=== PATIENT | male | born 1980 | race Caucasian/White ===

== ENCOUNTER 2022-09-04 22:11 | Emergency (ER) | payer BC, OTHER, SELFPAY ==
[2022-09-04 22:13] VITALS: BP 157/96; PULSE 71; RESP 16; TEMP 36.7; O2SAT 98; BMI 51.2
--- NOTE | 2022-09-04 22:20 | CT_ITS ---
PROCEDURE INFORMATION: Exam: CT Abdomen And Pelvis Without Contrast Exam date and time: 09/04/2022 11:18 PM Age: 41 years old Clinical indication: Abdominal pain; Localized; Left lower quadrant (llq); Prior surgery; Surgery type: Umbilical hernia repair; Additional info: Kidney stone protocol TECHNIQUE: Imaging protocol: Computed tomography of the abdomen and pelvis without contrast. Radiation optimization: All CT scans at this facility use at least one of these dose optimization techniques: automated exposure control; mA and/or kV adjustment per patient size (includes targeted exams where dose is matched to clinical indication); or iterative reconstruction. REPORTING DATA: Count of CT and Cardiac NM exams in prior 12 months: This patient has received 0 known CTs and 0 known cardiac nuclear medicine studies in the 12 months prior to the current study. COMPARISON: No relevant prior studies available. FINDINGS: Limitations: Lack of intravenous contrast. Lungs: Minimal atelectasis/scarring. Liver: Unremarkable. Gallbladder and bile ducts: No calcified stones. No ductal dilation. Pancreas: Unremarkable. No ductal dilation. Spleen: No splenomegaly. Adrenal glands: No mass. Kidneys and ureters: Mild stranding about kidneys. No renal calculi. No significant hydronephrosis. Stomach and bowel: No definite mural thickening. No obstruction. Appendix: Normal caliber. No inflammation. Intraperitoneal space: No significant fluid collection. No definite free air. Vasculature: Unremarkable. No abdominal aortic aneurysm. Lymph nodes: No pathologically enlarged lymph nodes. Urinary bladder: Unremarkable. Reproductive: Unremarkable as visualized. Bones/joints: No acute fracture. Soft tissues: Small to moderate umbilical hernia containing fat. IMPRESSION: 1. No definite CT evidence of urolithiasis. 2. Perinephric stranding, nonspecific. Correlate with urinalysis to exclude infection.
[2022-09-04 22:35] LABS: Microscopic, Urine URINE MICROSCOPIC (MICROSCOPIC)
--- NOTE | 2022-09-04 22:37 | [facility].EDGENADL ---
Discharge Plan Disposition Patient Disposition: Home, Self-Care Prescriptions Prescriptions: New Lortab Elixir 10-300 mg/15 mL solution 15 ml PO BID PRN (Reason: pain) Qty: 1 0RF cefdinir 300 mg capsule 300 mg PO BID 7 Days Qty: 14 0RF oxycodone 5 mg capsule 5 mg PO Q8H PRN (Reason: pain) Qty: 6 0RF No Action sumatriptan succinate [Imitrex] 100 mg Tablet 100 mg PO Q2H PRN (Reason: migraines) Rx Instructions: do not exceed 2 doses per 24 hrs metoprolol succinate 100 mg Tablet Extended Release 24 Hr 100 mg PO DAILY sertraline [Zoloft] 100 mg Tablet 100 mg PO DAILY omeprazole [Prilosec] 40 mg Capsule,Delayed Release(Dr/Ec) 40 mg PO DAILY naproxen 500 mg Tablet 500 mg PO BID Referrals Follow up/Referrals: Armando Baldwin [Primary Care Provider] - See instructions Activity Restrictions/Add. Instructions Additional Instructions/Restrictions: Return for worsening pain vomiting or any other concerns within the next 8 hours otherwise follow-up with Dr. Ge as needed [phone] Clinical Impressions Clinical Impression: Acute UTI Discharge ED Provider: Kwaku Nicholas General Adult HPI General Chief complaint: PAIN Stated complaint: LT side abd pain Time Seen by Provider: 09/04/22 22:20 Mode of Arrival: Ambulatory Limitations: No Limitations Description of Symptoms (Recalled from ER Triage Doc. by RN): pt c/o left flank pain that raidates down into his groin area and sometimes into the hip area. Pt advises the pain started Friday evening and has gotten worse. Pt denies pain or burning with urination but advises he has had some frequency. Advises he has had a hx of kidney stones History of Present Illness HPI narrative: 41-year-old male with history of kidney stones and stents presents with left flank pain and left-sided abdominal pain for the last day. He denies nausea vomiting fevers. Denies dysuria. Does have frequency. No hematuria. No diarrhea. He says that this feels like his prior kidney stones Related Data Home Medications Medication Instructions Recorded Confirmed metoprolol succinate 100 mg 100 mg PO DAILY Hypertension 09/04/22 09/04/22 tablet,extended release 24 hr naproxen 500 mg tablet 500 mg PO BID Pain 09/04/22 09/04/22 omeprazole 40 mg capsule,delayed 40 mg PO DAILY GERD 09/04/22 09/04/22 release sertraline 100 mg tablet (Zoloft) 100 mg PO DAILY Depression 09/04/22 09/04/22 sumatriptan succinate 100 mg 100 mg PO Q2H PRN migraines 09/04/22 09/04/22 tablet (Imitrex) Previous Rx's Medication Instructions Recorded hydrocodone 10 mg-acetaminophen 15 ml PO BID PRN pain #1 mL 09/04/22 300 mg/15 mL oral solution (Lortab Elixir) cefdinir 300 mg capsule 300 mg PO BID 7 days #14 caps 09/05/22 oxycodone 5 mg capsule 5 mg PO Q8H PRN pain #6 caps 09/05/22 Allergies Allergy/AdvReac Type Severity Reaction Status Date / Time escitalopram [From Lexapro] Allergy Verified 09/04/22 22:37 Iodinated Contrast Media Allergy Verified 09/04/22 22:37 lisinopril Allergy Verified 09/04/22 22:37 Penicillins Allergy Verified 09/04/22 22:37 [facility] Disclaimer: The information contained in this section may have been updated after the patient was seen, as this information can be updated by other users. Social History Smoking Status: Never smoker alcohol intake: never current occupational status: employed Travel in the last 8 weeks: Inside the [place] ROS Obtained: Yes All systems reviewed & no additional complaints except as documented Constitutional Constitutional: Denies body ache, Denies fatigue, Denies headache(s) and Denies weakness Eyes Eyes: Denies eye pain ENT Ears, Nose, Mouth, and Throat: Denies dysphagia, Denies headache(s), Denies lip swelling and Denies vertigo Cardiovascular Cardiovascular: Denies dyspnea Respiratory Respiratory: Denies shortness of breath and Denies dyspnea Gastrointestinal Harmony
[2022-09-04 22:45] LABS: Appearance,Urine CLEAR (Clear); Bilirubin,Urine Negative (Negative); Blood, Urine Negative (Negative); Color,Urine YELLOW (Yellow); Glucose,Urine (UA) Negative (Negative); Ketones,Urine Negative (Negative); Leukocyte Esterase,Urine Negative (Negative); Nitrate,Urine Negative (Negative); PH,Urine 6.5 (5.0-8.5); Protein,Urine Negative (Negative); Urobilinogen,Urine 0.2 EU/dl (0.2)
[2022-09-04 23:01] LABS: Basophils # 0.1 K/mm3 (0-0.2); Basophils % 1.6 % (0.1-2.0); Eosinophils # 0.2 K/mm3 (0.0-0.4); Eosinophils % 3.7 % (0.1-12.0); Hematocrit 44.2 % (42.0-52.0); Hemoglobin 14.7 g/dL (14.1-18.0); Lymphocytes # 1.9 K/mm3 (0.7-4.5); Lymphocytes % 32.7 % (10-50); Mean Corpuscular HGB Conc 33.4 g/dL (31.8-35.4); Mean Corpuscular Hemoglobin 28.5 pg (27.0-31.2); Mean Corpuscular Volume 85.6 fl (80-94); Mean Platelet Volume 7.8 fl (7.4-10.4); Monocytes # 0.3 K/mm3 (0.1-1.0); Monocytes % 4.5 % (1.7-9.3); Neutrophils # 3.4 K/mm3 (1.8-7.8); Neutrophils % 57.5 % (37.0-80.0); Platelet Count 249 K/mm3 (142-424); Red Blood Count 5.16 M/mm3 (4.60-6.20); Red Cell Distribution Width 13.9 % (11.5-17.5); White Blood Count 5.8 K/mm3 (4.8-10.8)
[2022-09-04 23:03] LABS: Bacteria,Urine Trace /lpf; Squamous Epithelial Cell,Urine Occasional #/hpf (0-5); WBC,Urine Occasional #/hpf (0-3)
[2022-09-04 23:08] LABS: Chloride 109 mmol/L (98-107); Potassium 3.7 mmoL/L (3.5-5.1); Sodium 140 mmol/L (136-145)
[2022-09-04 23:10] LABS: Alanine Aminotransferase 22 U/L (12-78); Aspartate Amino Transferase 29 U/L (17-59); Blood Urea Nitrogen 16 mg/dl (9-20); Creatinine Clearance Estimated 145 mL/min (50-200); Estimated Glomerular Filt Rate 107 ml/min (>60); GFR (African American) 129 ML/MIN (>60)
[2022-09-04 23:11] LABS: Albumin Level 4.1 g/dl (3.5-5.0); Albumin/Globulin Ratio 1.6 (1.1-1.8); Alkaline Phosphatase 66 U/L (38-126); Anion Gap 8.7 mEq/L (5-15); Bilirubin,Total 0.4 mg/dl (0.2-1.3); Calcium 8.2 mg/dl (8.4-10.2); Carbon Dioxide 26 mmol/L (22.0-30.0); Globulin 2.6 g/dL (1.3-3.2); Glucose 100 mg/dl (74-100); Lipase 86 U/L (23-300); Total Protein,Serum 6.7 g/dl (6.3-8.2)
--- NOTE | 2022-09-04 23:14 | PC.NURSE ---
pt to CT scan
--- NOTE | 2022-09-04 23:15 | PC.NURSE ---
Pt to CT
--- NOTE | 2022-09-04 23:20 | PC.NURSE ---
pt returned from CT
--- NOTE | 2022-09-04 23:59 | PC.NURSE ---
rounded on pt at this time. updated him we were waiting on ct results. Pt agreeable and had no new needs at this time
[2022-09-05 00:01] VITALS: BP 123/61; PULSE 61; RESP 17; O2SAT 96
[2022-09-05 00:36] VITALS: BP 153/77; PULSE 86; RESP 19; TEMP 36.8; O2SAT 97
== END 2022-09-05 00:37 | disposition home or self-care (01) ==
PROVIDERS: Emergency Provider Emergency Medicine; PCP Family Medicine
DX: N39.0 Urinary tract infection, site not specified (principal)
CPT/HCPCS: 74176; 80053; 81001; 83690; 85025; 96361; 96374; 99285